=== PATIENT | female | born 1990 | race Caucasian/White ===

== ENCOUNTER 2022-03-12 21:12 | Emergency (ER) | payer MEDICAID ==
[~2022-03-12] VITALS: Ht 165.1 cm; Wt 160.6 kg
[2022-03-12 21:23] VITALS: BP 131/98
--- NOTE | 2022-03-12 22:22 | NUR ---
Dr. Cordero examining patient
[2022-03-12 22:48] VITALS: BP 129/75
--- NOTE | 2022-03-12 22:48 | NUR ---
Patient discharged with v/s stable. Written and verbal after care instructions given and explained. Patient verbalized understanding. Ambulatory with steady gait. All questions addressed prior to discharge. Advised to follow up with PMD.
== END 2022-03-12 22:48 | disposition home or self-care (01) ==
LOC: MED 21:12
DX: F41.9 Anxiety disorder, unspecified (principal); R03.0 Elevated blood-pressure reading, without diagnosis of hypertension; F32.9 Major depressive disorder, single episode, unspecified
CPT/HCPCS: 93005; 99283

== ENCOUNTER 2022-05-13 20:48 | Emergency (ER) | payer MEDICAID ==
[~2022-05-13] VITALS: Ht 165.1 cm; Wt 154.8 kg
[2022-05-13 21:24] VITALS: BP 151/100
--- NOTE | 2022-05-13 21:27 | NUR ---
PT TO [facility]
[2022-05-13] MEDS ORDERED: IBUP-1878 PO (23:33)
[2022-05-14 00:09] VITALS: BP 145/88
== END 2022-05-14 00:08 | disposition home or self-care (01) ==
LOC: MED 20:48
DX: M79.671 Pain in right foot (principal); Z88.5 Allergy status to narcotic agent; Z88.6 Allergy status to analgesic agent; Z79.899 Other long term (current) drug therapy
CPT/HCPCS: 73630; 99283